=== PATIENT | male | born 1965 ===

== ENCOUNTER 2016-10-25 14:49 | Emergency (ER) | payer BC ==
[2016-10-25 15:32] VITALS: BP 172/87
[2016-10-25] MEDS ORDERED: Famotidine TAB* 20 MG PO ONE (15:43)
--- NOTE | 2016-10-25 16:05 | UC ---
UC General HPI - HPI Summary HPI Summary: Patient complaining of pain in the right side of his lower rib cage. He says it started around 1030 this morning. felt like some indigestion, took some tums but the pain remained. he denies any fever, n/v/d. pain does not move, saty located in lower right ribs. he did just finish a "nasty cold" and was coughing alot. - History of Current Complaint Chief Complaint: UCAbdominalPain Stated Complaint: ABDOMINAL COMPLAINT Time Seen by Provider: 10/25/16 15:28 Hx Obtained From: Patient Onset/Duration: Sudden Onset, Lasting Hours Timing: Constant Onset Severity: Moderate Current Severity: Moderate Pain Intensity: 6 Related Hx: Recent Illness - Allergy/Home Medications Allergies/Adverse Reactions: Allergies Allergy/AdvReac Type Severity Reaction Status Date / Time No Known Allergies Allergy Verified 10/25/16 15:31 Home Medications: Home Medications Aspirin [Miniprin Low Dose] 81 mg PO 10/25/16 [History] Fexofenadine (NF) [Siomara (NF)] 60 mg PO 10/25/16 [History] Guaifenesin 200 mg PO 10/25/16 [History] PMH/Surg Hx/FS Hx/Imm Hx Previously Healthy: Yes - Surgical History Surgical History: None - Family History Known Family History: Positive: Hypertension - Social History Alcohol Use: Daily Alcohol Amount: 1 drink per night Substance Use Type: None Smoking Status (MU): Never Smoked Tobacco Review of Systems Constitutional: Negative Skin: Negative Eyes: Negative ENT: Negative Respiratory: Negative Cardiovascular: Negative Gastrointestinal: Abdominal Pain Genitourinary: Negative Motor: Negative Neurovascular: Negative Musculoskeletal: Negative, Calf Tenderness Psychological: Negative All Other Systems Reviewed And Are Negative: Yes Physical Exam Triage Information Reviewed: Yes Appearance: Well-Appearing, Well-Nourished, Pain Distress Vital Signs: Initial Vital Signs Temp 97.8 F 10/25/16 15:27 Pulse 63 10/25/16 15:27 Resp 16 10/25/16 15:27 BP 172/87 10/25/16 15:27 Pulse Ox 100 10/25/16 15:27 Vital Signs Reviewed: Yes Eye Exam: Normal Eyes: Positive: Conjunctiva Clear ENT Exam: Normal ENT: Positive: Normal ENT inspection, Pharynx normal, TMs normal Dental Exam: Normal Neck exam: Normal Neck: Positive: Supple, Nontender, No Lymphadenopathy Respiratory Exam: Normal Respiratory: Positive: Chest non-tender, Lungs clear, Normal breath sounds Cardiovascular Exam: Normal Cardiovascular: Positive: RRR, No Murmur, Pulses Normal Abdomen Description: Positive: Nontender - no palpable abdominal pain, no cva tenderness, no guarding or distension, -rebound tenderness -obturator sign, No Organomegaly Bowel Sounds: Positive: Present Musculoskeletal: Positive: ROM Intact, No Edema, Other: - pain along the lower 5 ribs of right rib cage. patient put throough a series of trunk movements and stretches which relieved the pain. Neurological Exam: Normal Neurological: Positive: Alert, Muscle Tone Normal Psychological Exam: Normal Skin Exam: Normal Course/Dx - Course Course Of Treatment: hx obtained, exam performed, ua obtained, famotidine given for possible gerd, physical exam included some ROM and stretching based on findings of rib pain. after the exam the pain was gone. patient has been coughing alot due to his cold, possible muscle spasm/strain. talked with patient about BP, retake of BP was 171/98. encouraged patient to take BP daily for 1-2 weeks and report back to his PCP. - Differential Dx - Multi-Symptom Provider Diagnoses: right serratus spasm. rib pain. High blood pressure Discharge - Discharge Plan Condition: Stable Disposition: HOME Patient Education Materials: How to Take a Blood Pressure (ED) Additional Instructions: 1. continue stretching your side as we were doing. 2. Use heat as needed over the right rib cage. 3. Your urine showed that you were lsightly dehydrated, increase your fluid intake 4. Record you Blood pressure daily for the next two weeks ans report to you primary physician for possible medication. 5.if you have any increase in abdominal pain, fever, SOB or CP report to ER.
== END 2016-10-25 16:38 | disposition home or self-care (01) ==
LOC: UCEAST 14:49
DX: M62.838 Other muscle spasm (principal); R07.81 Pleurodynia; R03.0 Elevated blood-pressure reading, without diagnosis of hypertension
CPT/HCPCS: 81002; 99202; A9270-GY; G0463